=== PATIENT | male | born 1960 | race African-American/Black ===

== ENCOUNTER 2024-03-28 11:03 | Emergency (ER) | payer BC, MEDICARE ==
[~2024-03-28] VITALS: Ht 190.5 cm; Wt 97.5 kg
[~2024-03-28 11:03] MED LIST: AMLODIPINE BESY10 MG PO; CARVEDILOL25 MG PO; CRESTOR10 MG PO; PANTOPRAZOLE SO40 MG PO; PREDNISONE20 MG PO; TYLENOL # 31 EA PO; UNKNOWN BP MED
[2024-03-28 11:13] VITALS: PULSE 90; RESP 17; TEMP 97.4; O2SAT 100
[2024-03-28] MEDS ORDERED: BACTRIM DS TAB1 EACH PO (11:27)
== END 2024-03-28 12:28 | disposition home or self-care (01) ==
LOC: ER 11:14
DX: M25.522 Pain in left elbow (principal); L03.114 Cellulitis of left upper limb; I10 Essential (primary) hypertension; E78.5 Hyperlipidemia, unspecified; K21.9 Gastro-esophageal reflux disease without esophagitis
CPT/HCPCS: 99283

== ENCOUNTER 2024-05-08 12:40 | Emergency (ER) | payer MEDICARE ==
[~2024-05-08] VITALS: Ht 190.5 cm; Wt 97.5 kg
[~2024-05-08 12:40] MED LIST changes: +BACTRIM DS TAB1 EACH PO
[2024-05-08 13:28] VITALS: PULSE 78; RESP 18; TEMP 97.4; O2SAT 98
== END 2024-05-08 14:27 | disposition home or self-care (01) ==
LOC: ER 13:31
DX: M25.522 Pain in left elbow (principal); I10 Essential (primary) hypertension; E78.5 Hyperlipidemia, unspecified; K21.9 Gastro-esophageal reflux disease without esophagitis; M19.09 Primary osteoarthritis, other specified site
CPT/HCPCS: 99282